=== PATIENT | female | born 1990 | race Caucasian/White ===

== ENCOUNTER 2024-01-13 18:02 | Emergency (ER) | payer BC, SELFPAY ==
[2024-01-13 18:08] VITALS: BP 143/97
[2024-01-13 18:45] LABS: % Eosinophils 4.3 % (0-6); % Immature Granulocytes 0.2 % (0-0.5); % Lymphocytes 27.7 % (20.5-51.1); % Monocytes 7.9 % (1.7-9.3); % Neutrophils 58.9 % (42.2-75.2); Absolute Basophils 0.1 10^3/uL (0-0.2); Absolute Eosinophils 0.4 10^3/uL (0-0.7); Absolute Lymphocytes 2.3 10^3/uL (1.2-3.4); Absolute Monocytes 0.7 10^3/uL (0.1-0.6); Absolute Neutrophils 4.9 10^3/uL (1.4-6.5); Hematocrit 41.9 % (37.0-47.0); Hemoglobin 14.1 g/dL (12.0-16.0); Mean Corp Hgb Conc. 33.7 g/dL (33.0-37.0); Mean Corpuscular Hgb 29.6 pg (27.0-31.0); Mean Corpuscular Volume 87.8 fL (81.0-99.0); Nucleated Red Blood Cells % 0 %; Platelet Count 318 10^3/uL (130-400); Red Blood Cell Count 4.77 10^6/uL (4.20-5.40); Red Cell Dist. Width 12.6 % (11.5-14.5); White Blood Cell Count 8.3 10^3/uL (4.8-10.8)
[2024-01-13 18:56] LABS: HCG, Serum Qualitative Screen Negative
[2024-01-13 18:59] LABS: ALT (SGPT) 19 U/L (0-35); AST (SGOT) 25 U/L (14-36); Albumin 4.5 g/dl (3.5-5.0); Alkaline Phosphatase 69 U/L (38-126); Blood Urea Nitrogen 26 mg/dl (7-17); Calcium 9.6 mg/dl (8.4-10.2); Carbon Dioxide 25 mmol/L (22-30); Chloride 105 mmol/L (98-107); Glucose 96 mg/dl (70-99); Lipase 189 U/L (23-300); Potassium 4.5 mmol/L (3.5-5.1); Sodium 138 mmol/L (135-145); Total Bilirubin 0.4 mg/dl (0.2-1.3); Total Protein 7.3 g/dl (6.3-8.2); eGFR > 60.00
[2024-01-13 19:09] LABS: Troponin I < 0.012 ng/ml
--- NOTE | 2024-01-13 21:38 | ED.GENMED ---
History of Present Illness
General
Chief Complaint: Breathing Problem
Source: patient
Exam Limitations: none
Time Seen by Provider: 01/13/24 21:28
Travel History
Have you had any contact with someone who has COVID-19?: No
Do you have any symptoms of coronavirus? Fever > 100 degrees, chills, cough, shortness of breath, sore throat, loss of taste or smell, muscle aches, or headache?: No
History of Present Illness
History of Present Illness:
See MDM
Past History
Past History
ED Past Medical History: None
ED Past Surgical History: None
Social History
Tobacco: Non-smoker
Alcohol: None
Phy Exam
Physical Exam
Physical Exam:
See MDM
Course
Orders/Labs/Results
Orders:
Orders
01/13/24 18:12
Electrocardiogram (*1) Urgent
Reason for Study: Shortness of Breath
CR Chest - 2 Views Urgent
Comment:
Reason For Exam: chest pain
01/13/24 18:13
EKG- Treatment ONCE
Test Result ONCE
01/13/24 18:30
Complete Blood Count/With Diff Urgent
Comprehensive Metabolic Panel Urgent
HCG, Serum Qualitative Screen Urgent
Lipase Urgent
Troponin I Urgent
01/13/24 21:38
CT Abd/pelvis W Iv Cont Urgent
Comment:
Reason For Exam: Mid abd pain
Abnormal Lab Results
01/13/24
18:30
Absolute Monos (auto) 0.7 H 10^3/uL
(0.1-0.6)
BUN 26 H mg/dl
(7-17)
01/13/24 18:30
01/13/24 18:30
Vital Signs
Initial and Last Documented VS:
Initial Vital Signs
Temp Pulse Resp BP Pulse Ox
98.1 F 74 20 143/97 99
01/13/24 18:08 01/13/24 18:08 01/13/24 18:08 01/13/24 18:08 01/13/24 18:08
Last Documented Vital Signs
Temp Pulse Resp BP Pulse Ox
98.1 F 74 20 143/97 99
01/13/24 18:08 01/13/24 18:08 01/13/24 18:08 01/13/24 18:08 01/13/24 18:08
MDM/Problems Addressed
Differential Diagnosis Includes:
HPI and MDM Narrative:
33-year-old female presenting with mid abdominal pain. She noticed a 'pop' in her mid abdomen when she was stretching before run. Since then, she has been having intermittent pain. It is not worse with food intake. She had a burning sensation
earlier in the day which dropped her to her knees. After she vomited, symptoms appeared to resolve. She still has a mid abdominal burning sensation.
Given her symptoms, will obtain CT. I discussed with patient that her chest x-ray, EKG and blood work are within normal limits. We discussed GI-. Very mild mid epigastric tenderness. No rebound related pain if CT is negative
Physical exam
General: Well appearing and non-toxic
HEENT: protecting airway
Neck: appears supple
CV: No evidence of cyanosis
Resp: No accessory muscle use
Abd: Non-distended. Very mild midepigastric pain. no rebound
Extremities: No deformities
Neuro: alert
Psych: Normal affect
Skin: Intact
Problems Addressed including Acute and Chronic Conditions affecting care:
1. Mid abdominal pain
Acuity: acute
Prognosis: stable
Details: Given the symptoms resolved with vomiting, we discussed likely GI related pain. Will obtain CT to look for alternative diagnoses
Updates
CT negative for acute pathology. I discussed with the patient that there is mild gallbladder wall thickening but she has no right upper quadrant tenderness, no gallbladder stones and no LFT elevation. Patient has not had any flareups while she has
been in the hospital for over 6 hours. Discussed talking to her PCP and follow-up with GI
Differential Diagnosis (but not limited to): Pancreatitis, gastroenteritis, esophagitis, abdomen hematoma
Testing considered: D-dimer but she is neither tachycardic nor hypoxic
Drug therapy (if applicable): OTC meds, please see d/c instruction regarding Rx drugs
Amount and/or Complexity of Data Reviewed
Clinical info obtained from: Patient
External data reviewed: N/A
Labs I independently reviewed (but not limited to): Troponin and LFTs negative
Radiology: X-ray independently reviewed: Chest x-ray clear
Pulse Ox: not hypoxic
EKG independently reviewed: Sinus rhythm, normal axis, no STEMI
Forestry Scientist: N/A
Critical Care: N/A
Risk of Complication:
Social Determinants of health: Good social support
Discussed with other providers: N/A
Escalation of Care includes Admit/Obs: After being observed in the Emergency Department, pt stable for discharge.
Occasional wrong word or 'sound a like' substitutions may have occurred due to the inherent limitations of voice recognition software. Read the chart carefully and recognize, using context, where substitutions have occurred.
*Critical Care Note
Total Time (30-74mins, 75-104mins- exclusive of procedures): Not Applicable
ED Attending Note
-
Portions of this chart may have been created with voice recognition software.� Occasional wrong word or��sound alike� substitutions may have occurred due to the inherent limitations of voice recognition software.
Discharge Plan
Departure
Patient Disposition: Home (Routine Discharge)
Date of Disposition: 01/14/24
Time of Disposition: 00:23
Patient with high blood pressure during this ER visit?: Yes
Discharge Problem:
Abdominal pain
Instructions: Abdominal Pain, Adult ED, BLOOD PRESSURE
Referrals:
Lilliana Matthews DO [Family Provider] -
Activity Restrictions/Additional Instructions:
As we discussed, it is uncertain what caused your pain.
Please return for any worsening symptoms.
You may return at any time if you have further concerns.
Please follow up with your doctor at the first available appointment, preferably this week.
If symptoms persist, please call the pricing coordinator.
Thank you for choosing [facility].
Interventions
Interventions:
*Risk Screen - Suicide Last Done: 01/13/24 18:08
*General Assessment Last Done: 01/13/24 18:08
*Neglect/Abuse Screening Last Done: 01/13/24 18:08
ED- Fall Risk Assessment Last Done: 01/14/24 00:23
*ED COVID-19 Vaccine History Last Done: 01/14/24 00:23
ED- Cardiac Assessment Last Done: 01/13/24 21:30
ED- Pulmonary Assessment Last Done: 01/13/24 21:30
Discharge Date and Time
Print Language: DANISH
[2024-01-14 00:32] VITALS: BP 113/70
== END 2024-01-14 00:32 | disposition home or self-care (01) ==
LOC: EMR 18:02
PROVIDERS: Emergency Medicine; EMERGENCY PHYSICIAN Student in an Organized Health Care Education/Training Program; FAMILY PHYSICIAN Family Medicine
DX: R10.9 Unspecified abdominal pain (principal); R11.10 Vomiting, unspecified; K30 Functional dyspepsia; R07.9 Chest pain, unspecified; R06.02 Shortness of breath; R03.0 Elevated blood-pressure reading, without diagnosis of hypertension
CPT/HCPCS: 99285; 71046; 74177; 80053; 83690; 84484; 84703; 85025; 93005; Q9967

== ENCOUNTER 2025-03-12 12:24 | Emergency (ER) | payer BC, SELFPAY ==
[2025-03-12 12:29] VITALS: BP 131/59
[2025-03-12 12:48] LABS: Hematocrit 32.0 % (37.0-47.0); Hemoglobin 11.3 g/dL (12.0-16.0); Mean Corp Hgb Conc. 35.3 g/dL (33.0-37.0); Mean Corpuscular Volume 85.8 fL (81.0-99.0); Nucleated Red Blood Cells % 0 %; Platelet Count 234 10^3/uL (130-400); Red Cell Dist. Width 13.3 % (11.5-14.5)
[2025-03-12 13:02] LABS: ALT (SGPT) 14 U/L (0-35); AST (SGOT) 22 U/L (14-36); Albumin 3.7 g/dl (3.5-5.0); Alkaline Phosphatase 49 U/L (38-126); Blood Urea Nitrogen 15 mg/dl (7-17); Calcium 9.2 mg/dl (8.4-10.2); Carbon Dioxide 26 mmol/L (22-30); Chloride 107 mmol/L (98-107); Glucose 103 mg/dl (70-99); Potassium 4.1 mmol/L (3.5-5.1); Sodium 135 mmol/L (135-145); Total Protein 6.3 g/dl (6.3-8.2); eGFR > 60.00
[2025-03-12 13:13] LABS: Troponin I < 0.012 ng/ml
[2025-03-12 15:24] VITALS: BP 115/53
--- NOTE | 2025-03-12 16:07 | ED.GENMED ---
History of Present Illness
General
Chief Complaint: Heart Rate Problem
Source: patient
Exam Limitations: none
Time Seen by Provider: 03/12/25 15:16
History of Present Illness
History of Present Illness:
34-year-old female currently 18 weeks with her second presents with palpitations and left arm paresthesias. Left arm paresthesia started about 2 days ago. She recently started aspirin secondary to her advanced age and
and she correlates her symptoms with the initiation of aspirin therapy. She notes occasional chest tightness. She describes palpitations of which sometimes feel like her racing heart or skipped beat. She is healthy otherwise. No other complaints
at this time
Past History
Past History
ED Past Medical History: None
ED Past Surgical History: None
Social History
Tobacco: Non-smoker
Alcohol: None
Phy Exam
Physical Exam
Physical Exam:
General: Well-appearing female in no acute respiratory distress
HEENT: Normocephalic atraumatic
Heart: Regular rate and rhythm
Lungs: Clear no wheeze
Abdomen is soft nontender
Vascular: 2+ symmetric radial pulses bilaterally no swelling of the arms or legs
Neurologic: Good strength and sensation to the upper extremities bilaterally
Course
Orders/Labs/Results
Orders:
Orders
03/12/25 12:25
Electrocardiogram (*1) Urgent
Reason for Study: Palpitations
EKG- Treatment ONCE
03/12/25 12:38
CMP [Comprehensive Metabolic Panel] Urgent
Complete Blood Count/With Diff Urgent
TSH Reflex To Free T4 Urgent
Troponin I Urgent
Abnormal Lab Results
03/12/25
12:38
WBC 11.8 H 10^3/uL
(4.8-10.8)
RBC 3.73 L 10^6/uL
(4.20-5.40)
Hgb 11.3 L g/dL
(12.0-16.0)
Hct 32.0 L %
(37.0-47.0)
Abs Immat Gran (auto) 0.1 H 10^3/uL
(0-0.05)
Absolute Neuts (auto) 9.1 H 10^3/uL
(1.4-6.5)
Absolute Monos (auto) 0.8 H 10^3/uL
(0.1-0.6)
Neutrophils % 76.5 H %
(42.2-75.2)
Lymphocytes % 14.5 L %
(20.5-51.1)
Glucose 103 H mg/dl
(70-99)
03/12/25 12:38
03/12/25 12:38
Vital Signs
Initial and Last Documented VS:
Initial Vital Signs
Temp Pulse Resp BP Pulse Ox
98.5 F 66 18 131/59 99
03/12/25 12:29 03/12/25 12:29 03/12/25 12:29 03/12/25 12:29 03/12/25 12:29
Last Documented Vital Signs
Temp Pulse Resp BP Pulse Ox
98.5 F 75 14 115/53 99
03/12/25 12:29 03/12/25 17:00 03/12/25 17:00 03/12/25 15:24 03/12/25 16:09
MDM/Problems Addressed
Differential Diagnosis Includes:
Patient with palpitations and paresthesias to the left arm. Consider arrhythmia versus neuropathy versus radiculopathy versus radiating symptoms from cardiac source. EKG shows sinus rhythm without ischemic changes. Troponin undetectable thyroid
normal.
Will place patient on security investigator and observe for any further arrhythmias or abnormal beats
*Pulse Oximetry
SaO2: 99
Oxygen Mode of Delivery: Room air
Patient hypoxic: no
*Critical Care Note
Total Time (30-74mins, 75-104mins- exclusive of procedures): Not Applicable
Update Note
Update Note:
No arrhythmias noted on the monitor. Labs reviewed without significant finding. Cardiac workup negative. Stable for discharge. She has an appoint with her OB in 2 days
ED Attending Note
-
Portions of this chart may have been created with voice recognition software.� Occasional wrong word or��sound alike� substitutions may have occurred due to the inherent limitations of voice recognition software.
Discharge Plan
Departure
Patient Disposition: Home (Routine Discharge)
Date of Disposition: 03/12/25
Time of Disposition: 17:12
Patient with high blood pressure during this ER visit?: No
Discharge Problem:
Palpitations
Referrals:
Lilliana Matthews DO [Family Provider, Family Practice]
Activity Restrictions/Additional Instructions:
Please return here for worsening symptoms otherwise follow-up with your GOAT DRIVER as planned
Interventions
Interventions:
*Risk Screen - Suicide Last Done: 03/12/25 12:29
*General Assessment Last Done: 03/12/25 12:29
*Neglect/Abuse Screening Last Done: 03/12/25 12:29
*ED- Fall Risk Assessment Last Done: 03/12/25 12:29
*ED COVID-19 Vaccine History Last Done: 03/12/25 12:29
ED- Cardiac Assessment Last Done: 03/12/25 15:46
ED- Pulmonary Assessment Last Done: 03/12/25 15:46
Discharge Date and Time
Print Language: UPPER SORBIAN
[2025-03-12 17:38] VITALS: BP 125/64
== END 2025-03-12 17:43 | disposition home or self-care (01) ==
LOC: EMR 12:24
PROVIDERS: Student in an Organized Health Care Education/Training Program; EMERGENCY PHYSICIAN Emergency Medicine; FAMILY PHYSICIAN Family Medicine
DX: O99.891 Other specified diseases and conditions complicating pregnancy (principal); R00.2 Palpitations; R20.2 Paresthesia of skin; Z3A.18 18 weeks gestation of pregnancy
CPT/HCPCS: 99283; 80053; 84443; 84484; 85025; 93005

== ENCOUNTER 2025-08-04 14:50 | Observation (INO) | payer BC, SELFPAY ==
[2025-08-04 14:54] VITALS: BP 105/62; BMI 32.4
[2025-08-04 15:48] LABS: Hematocrit 31.5 % (37.0-47.0); Hemoglobin 11.0 g/dL (12.0-16.0); Mean Corp Hgb Conc. 34.9 g/dL (33.0-37.0); Mean Corpuscular Volume 85.4 fL (81.0-99.0); Nucleated Red Blood Cells % 0 %; Platelet Count 234 10^3/uL (130-400); Red Cell Dist. Width 12.9 % (11.5-14.5)
[2025-08-04 16:04] LABS: ALT (SGPT) 11 U/L (0-35); AST (SGOT) 20 U/L (14-36); Albumin 3.3 g/dl (3.5-5.0); Alkaline Phosphatase 138 U/L (38-126); Blood Urea Nitrogen 10 mg/dl (7-17); Calcium 9.3 mg/dl (8.4-10.2); Carbon Dioxide 21 mmol/L (22-30); Chloride 107 mmol/L (98-107); Estimated Creatinine Clearance > 125 ml/min; Glucose 72 mg/dl (70-99); Potassium 3.8 mmol/L (3.5-5.1); Sodium 132 mmol/L (135-145); Total Protein 5.9 g/dl (6.3-8.2); Uric Acid 5.2 mg/dl (2.5-6.2); eGFR > 60.00
== END 2025-08-04 16:58 | disposition home or self-care (01) ==
LOC: LDRP 14:50
PROVIDERS: ADMITTING PHYSICIAN Obstetrics & Gynecology; FAMILY PHYSICIAN Family Medicine
DX: O26.893 Other specified pregnancy related conditions, third trimester (principal); R51.9 Headache, unspecified; Z3A.38 38 weeks gestation of pregnancy; Z88.8 Allergy status to other drugs, medicaments and biological substances
CPT/HCPCS: 36415; 59025; 80053; 82570; 84156; 84550; 85025; 86850; 86900; 86901; G0378

== ENCOUNTER 2025-08-12 11:18 | Inpatient (IN) | payer BC, SELFPAY ==
[2025-08-11 08:35] VITALS: BP 122/68; BMI 32.6
[2025-08-11 09:22] LABS: Hematocrit 33.8 % (37.0-47.0); Hemoglobin 11.7 g/dL (12.0-16.0); Mean Corp Hgb Conc. 34.6 g/dL (33.0-37.0); Mean Corpuscular Volume 84.5 fL (81.0-99.0); Nucleated Red Blood Cells % 0 %; Platelet Count 246 10^3/uL (130-400); Red Cell Dist. Width 13.1 % (11.5-14.5)
[2025-08-11] MEDS: CYTOTEC 25 MICROGRAM PO (09:32)
[2025-08-11] MEDS: LR 1000 IV ×2 (09:32→22:47)
[2025-08-11] MEDS: CYTOTEC 50 MICROGRAM PO (13:56)
[2025-08-11] MEDS: PITOCIN 30 UNITS/NSS 500 ML IV (18:18)
[2025-08-12] MEDS: LR 1000 IV ×2 (04:50→08:11)
[2025-08-12] MEDS: FENTANYL/BUPIVACAINE 100 EPIDURAL (05:07)
[2025-08-12] MEDS: SUBLIMAZE 100 MCG EPIDURAL (05:07)
[2025-08-12] MEDS: PITOCIN 30 UNITS/NSS 500 ML IV (13:03)
[2025-08-12] MEDS: COLACE 100 MG PO (20:13)
[2025-08-12] MEDS: MOTRIN 600 MG PO (20:14)
[2025-08-12] MEDS: TYLENOL 650 MG PO (20:14)
[2025-08-13 05:16] LABS: Hematocrit 37.7 % (37.0-47.0); Hemoglobin 13.1 g/dL (12.0-16.0)
[2025-08-13] MEDS: TYLENOL 650 MG PO (09:03)
[2025-08-13] MEDS: COLACE 100 MG PO (09:03)
[2025-08-13] MEDS: MOTRIN 600 MG PO (09:03)
[2025-08-13] MEDS: PRENATAL PLUS 1 TABLET PO (09:03)
== END 2025-08-13 14:00 | disposition home or self-care (01) | DRG 807 ==
LOC: LDRP 11:18
PROVIDERS: Obstetrics & Gynecology; ADMITTING PHYSICIAN Student in an Organized Health Care Education/Training Program
PROC: 3E033VJ Introduction of Other Hormone into Peripheral Vein, Percutaneous Approach (ICD-10-PCS; 2025-08-11)
PROC: 10907ZC Drainage of Amniotic Fluid, Therapeutic from Products of Conception, Via Natural or Artificial Opening (ICD-10-PCS; 2025-08-11)
PROC: 3E0DXGC Introduction of Other Therapeutic Substance into Mouth and Pharynx, External Approach (ICD-10-PCS; 2025-08-11)
PROC: 10E0XZZ Delivery of Products of Conception, External Approach (ICD-10-PCS; 2025-08-12)
PROC: 0KQM0ZZ Repair Perineum Muscle, Open Approach (ICD-10-PCS; 2025-08-12)
DX: O70.1 Second degree perineal laceration during delivery (principal); Z37.0 Single live birth; Z3A.39 39 weeks gestation of pregnancy
CPT/HCPCS: 85014; 85018; 85025; 86780; 86850; 86900; 86901